=== PATIENT | male | born 1965 | race Caucasian/White ===

== ENCOUNTER 2017-05-22 17:59 | Emergency (ER) | payer SELFPAY ==
[2017-05-22 18:27] VITALS: BP 153/89; PULSE 103; RESP 20; TEMP 37.3; O2SAT 96; BMI 20.3
--- NOTE | 2017-05-22 19:19 | HMH.EDUTC ---
[facility] – [place] Disposition Clinical Impression: Pneumonia Qualifiers: Pneumonia type: due to unspecified organism Laterality: left Lung location: unspecified part of lung Qualified Code(s): J18.9 - Pneumonia, unspecified organism Disposition: Home, Self-Care Condition on Discharge: Good Instructions: DI for Pneumonia -- Adult Additional Instructions: * STOP SMOKING!!!! * start antibiotic tomorrow since we gave first dose in clinic. Be sure to complete entire prescription even if feeling better. * Monitor Temp. Follow up if fever restarts. * humidifier/vaporizer/hot steamy shower * Inhaler every 4-6 hours as needed like we discussed. Should help open airways and improve cough, wheezing, shortness of breath. * Mucinex during the day for your cough and cough suppressant only at night. Be sure to drink lots of water. Insurance may not cover a prescription of mucinex. Might be cheaper to get 400mg tablets and take 2 tablets morning, midday and evening all with lots of water. * Tessalon Perles will not cause drowsiness but use at bedtime to help stop cough so that you can get some rest * Start steroid tomorrow since you had injection in clinic. Helps with inflammation therefore, cough and wheezing. Follow directions on package. Rvwd side effects. Pt reports they have taken them before. We have provided you with a list of providers accepting patients. I would encourage you find a new primary care provider and make an appt CHANTEL as it can take weeks to get a new patient appointment. In the meantime, follow up in the clinic or ER for new, worsening or persistent symptoms. You WILL need a repeat xray in 4-6 weeks!!!!!!!!! Prescriptions: Benzonatate [Benzonatate 200mg Cap] 200 mg PO HS PRN #14 cap PRN Reason: Cough levoFLOXacin [Levaquin 500mg tab] 500 mg PO DAILY #9 tab predniSONE [Prednisone 20mg Tab] 20 mg PO BID #10 tab Referrals: Provider,Referral, MD [Primary Care Provider] - (in 2-3 days, immediately for new or worsening symptoms.) Time of Disposition: 21:01 Medical Decision Making Vital Signs: 05/22/17 18:27 Temperature 99.1 F Temperature Source Temporal Artery Scan Pulse Rate [Right Radial] 103 H Respiratory Rate 20 Blood Pressure [Right Arm] 153/89 Blood Pressure Mean [Right Arm] 110 Blood Pressure Source [Right Arm] Automatic Cuff Blood Pressure Position [Right Arm] Sitting 02 Sat by Pulse Oximetry 96 Oxygen Delivery Method Room Air - Lab Data Lab results reviewed: Yes: I reviewed the patient's lab results. Lab Results 05/22/17 20:56: Influenza Type A Ag Negative, Influenza Type B Ag Negative flu a neg flu b neg Orders (Tests/Meds): ED MEDICATIONS Generic Name Dose Route Start Last Admin Trade Name Freq PRN Reason Stop Dose Admin Levofloxacin 500 mg 05/22/17 21:00 Levaquin 500mg Tab PO 05/22/17 21:01 ONCE ONE Protocol Discontinued Medications Generic Name Dose Route Start Last Admin Trade Name Freq PRN Reason Stop Dose Admin Albuterol/Ipratropium 3 ml 05/22/17 19:24 05/22/17 19:35 Duoneb 3ml Neb IH 05/22/17 19:25 3 ml ONCE ONE Administration Methylprednisolone Sodium Succinate 125 mg 05/22/17 19:24 05/22/17 19:35 Solu-Medrol 125mg/2ml Vial IM 05/22/17 19:25 125 mg ONCE ONE Administration - Radiology Data #1 Image(s): Chest Image Reviewed: Yes I have reviewed radiologist's interpretation Preliminary Findings: Abnormal subtle infiltrate at left midlung and likely extending towards lingula - Joe Inquiry Pt receiving controlled substance: No - Reevaluation(s) Reevaluation #1: wheezing, cough, rhonchi improved but not resolved w/ steroid and duoneb. pt reports feeling better and breathing easier [facility] – [place] HPI - General Stated complaint: Fever, Aches, Chills Time Seen by Provider: 05/22/17 19:19 Mode of Arrival: Family Vehicle Source of Information: Patient Limitations: No Limitations Description of Symptoms (Recall
--- NOTE | 2017-05-22 19:24 | XR_ITS ---
XR chest 2V Ordering Physician: Andrew Payan Patient Age: 51 years: Male HISTORY: ITS.REASON: cough, wheezing, SOA >1wk despite zpack, smoker TECHNIQUE: PA and lateral chest COMPARISON :PA and lateral chest 07/31/2013 & 2007 FINDINGS Of the lungs appear hyperexpanded suggesting underlying COPD. . Identified in the diaphragm on lateral view is well. Right lung. Clear unremarkable. No active disease Left chest question very subtle infiltrate at the left midlung on the lateral view likely extending into the lingula with some scattered faint areas of nodularity. Clinical correlation required no patient had a previous lingular pneumonia 2007 CXR The heart is normal in size the [place] and mediastinal structures unremarkable. Mild apical pleural parenchymal scarring bilaterally appears stable. Chest wall and T-spine satisfactory and stable IMPRESSION: ========= Question/suspect a very subtle infiltrate at the left midlung and likely extending towards the lingula Scattered faint nodules also noted to this region. Would encourage a follow-up chest film and 4-6 weeks after current process has cleared.
--- NOTE | 2017-05-22 19:24 | ED_ITS ---
[facility] – [place] Disposition Clinical Impression: Pneumonia Qualifiers: Pneumonia type: due to unspecified organism Laterality: left Lung location: unspecified part of lung Qualified Code(s): J18.9 - Pneumonia, unspecified organism Disposition: Home, Self-Care Condition on Discharge: Good Instructions: DI for Pneumonia -- Adult Additional Instructions: * STOP SMOKING!!!! * start antibiotic tomorrow since we gave first dose in clinic. Be sure to complete entire prescription even if feeling better. * Monitor Temp. Follow up if fever restarts. * humidifier/vaporizer/hot steamy shower * Inhaler every 4-6 hours as needed like we discussed. Should help open airways and improve cough, wheezing, shortness of breath. * Mucinex during the day for your cough and cough suppressant only at night. Be sure to drink lots of water. Insurance may not cover a prescription of mucinex. Might be cheaper to get 400mg tablets and take 2 tablets morning, midday and evening all with lots of water. * Tessalon Perles will not cause drowsiness but use at bedtime to help stop cough so that you can get some rest * Start steroid tomorrow since you had injection in clinic. Helps with inflammation therefore, cough and wheezing. Follow directions on package. Rvwd side effects. Pt reports they have taken them before. We have provided you with a list of providers accepting patients. I would encourage you find a new primary care provider and make an appt CHANTEL as it can take weeks to get a new patient appointment. In the meantime, follow up in the clinic or ER for new, worsening or persistent symptoms. You WILL need a repeat xray in 4-6 weeks!!!!!!!!! Prescriptions: Benzonatate [Benzonatate 200mg Cap] 200 mg PO HS PRN #14 cap PRN Reason: Cough levoFLOXacin [Levaquin 500mg tab] 500 mg PO DAILY #9 tab predniSONE [Prednisone 20mg Tab] 20 mg PO BID #10 tab Referrals: Provider,Referral, MD [Primary Care Provider] - (in 2-3 days, immediately for new or worsening symptoms.) Time of Disposition: 21:01 Medical Decision Making Vital Signs: 05/22/17 18:27 Temperature 99.1 F Temperature Source Temporal Artery Scan Pulse Rate [Right Radial] 103 H Respiratory Rate 20 Blood Pressure [Right Arm] 153/89 Blood Pressure Mean [Right Arm] 110 Blood Pressure Source [Right Arm] Automatic Cuff Blood Pressure Position [Right Arm] Sitting 02 Sat by Pulse Oximetry 96 Oxygen Delivery Method Room Air - Lab Data Lab results reviewed: Yes: I reviewed the patient's lab results. Lab Results 05/22/17 20:56: Influenza Type A Ag Negative, Influenza Type B Ag Negative flu a neg flu b neg Orders (Tests/Meds): ED MEDICATIONS Generic Name Dose Route Start Last Admin Trade Name Freq PRN Reason Stop Dose Admin Levofloxacin 500 mg 05/22/17 21:00 Levaquin 500mg Tab PO 05/22/17 21:01 ONCE ONE Protocol Discontinued Medications Generic Name Dose Route Start Last Admin Trade Name Freq PRN Reason Stop Dose Admin Albuterol/Ipratropium 3 ml 05/22/17 19:24 05/22/17 19:35 Duoneb 3ml Neb IH 05/22/17 19:25 3 ml ONCE ONE Administration Methylprednisolone Sodium Succinate 125 mg 05/22/17 19:24 05/22/17 19:35 Solu-Medrol 125mg/2ml Vial IM 05/22/17 19:25 125 mg ONCE ONE Administration - Radiology Data #1 Image(s): Chest Image Reviewed:
[2017-05-22 20:56] LABS: UTC Influenza A Antigen Negative (Negative); UTC Influenza B Antigen Negative (Negative)
[2017-05-22 21:06] VITALS: BP 150/70; PULSE 76; RESP 20; TEMP 36.9; O2SAT 99
== END 2017-05-22 21:07 | disposition home or self-care (01) ==
PROVIDERS: Emergency Provider Nurse Practitioner Family
DX: J18.9 Pneumonia, unspecified organism (principal); F17.210 Nicotine dependence, cigarettes, uncomplicated
CPT/HCPCS: 71046; 87804; 96372; 99202

== ENCOUNTER → 2017-09-21 10:11 | Outpatient (REF) | payer SELFPAY ==
[2017-09-21 14:04] LABS: Basophils # 0.1 K/mm3 (0-0.2); Basophils % 0.8 % (0.1-2.0); Eosinophils # 0.3 K/mm3 (0.0-0.4); Eosinophils % 2.7 % (0.1-12.0); Hematocrit 52.1 % (42.0-52.0); Hemoglobin 16.3 g/dL (14.1-18.0); Lymphocytes # 2.7 K/mm3 (0.7-4.5); Lymphocytes % 29.7 K/mm3 (10-50); Mean Corpuscular HGB Conc 31.2 g/dL (31.8-35.4); Mean Corpuscular Volume 99.3 fl (80-94); Monocytes # 0.5 K/mm3 (0.1-1.0); Monocytes % 5.5 % (1.7-9.3); Neutrophils # 5.5 K/mm3 (1.8-7.8); Neutrophils % 61.2 % (37.0-80.0); Platelet Count 372 K/mm3 (142-424); Red Blood Count 5.25 M/mm3 (4.60-6.20); Red Cell Distribution Width 13.2 % (11.5-17.5)
[2017-09-21 14:05] LABS: Alanine Aminotransferase 25 U/L (12-78); Albumin/Globulin Ratio 1.2 (1.1-1.8); Alkaline Phosphatase 105 U/L (46-116); Anion Gap 16.2 mEq/L (5-15); Aspartate Amino Transferase 23 U/L (15-37); Bilirubin,Total 0.5 mg/dL (0.2-1.0); Blood Urea Nitrogen 8 mg/dL (7-18); Calcium 8.8 mg/dL (8.5-10.1); Carbon Dioxide 27 mmol/L (21.0-32.0); Chloride 104 mmol/L (98-107); Chol/HDL Ratio 2.8 (1-3.5); Cholesterol 183 mg/dL (140-200); Creatinine,Serum 0.76 mg/dL (0.70-1.30); Estimated Glomerular Filt Rate 108 ml/min (>60); GFR (African American) 130 ML/MIN (>60); Globulin 3.3 gm/dl (1.3-3.2); Glucose 145 mg/dL (74-106); HDL Cholesterol 66 mg/dL (27-67); LDL Cholesterol 94 mg/dL (0-130); Potassium 4.2 mmoL/L (3.5-5.1); Sodium 143 mmol/L (136-145); T4 (Thyroxine) 5.7 ug/dl (4.7-13.3); Thyroid Stimulating Hormone 0.64 uIU/ml (0.358-3.740); Total Protein,Serum 7.3 gm/dL (6.4-8.2); Triglycerides 117 mg/dL (30-200); VLDL Cholesterol 23 mg/dL (0-40)
[2017-09-22 15:40] LABS: PSA, Free 0.74 ng/mL; Prostate Specific Ag 4.8 ng/mL (0.0-4.0); Vitamin D 25 Hydroxy 27.5 ng/mL (30.0-100.0)
== END ==
LOC: LAB 10:11
PROVIDERS: Visit Provider Nurse Practitioner Family
DX: R22.1 Localized swelling, mass and lump, neck (principal); L02.91 Cutaneous abscess, unspecified; R53.83 Other fatigue
CPT/HCPCS: 80053; 80061; 82652; 84153; 84154; 84436; 84443; 85025

== ENCOUNTER → 2018-05-09 10:17 | Outpatient (CLI) | payer SELFPAY ==
[2018-05-09 11:07] LABS: Basophils # 0.1 K/mm3 (0-0.2); Basophils % 0.6 % (0.1-2.0); Eosinophils # 0.3 K/mm3 (0.0-0.4); Eosinophils % 2.1 % (0.1-12.0); Hematocrit 44.9 % (42.0-52.0); Hemoglobin 14.7 g/dL (14.1-18.0); Lymphocytes # 2.4 K/mm3 (0.7-4.5); Lymphocytes % 17.7 % (10-50); Mean Corpuscular HGB Conc 32.8 g/dL (31.8-35.4); Mean Corpuscular Hemoglobin 32.9 pg (27.0-31.2); Mean Corpuscular Volume 100.2 fl (80-94); Mean Platelet Volume 7.1 fl (7.4-10.4); Monocytes # 0.6 K/mm3 (0.1-1.0); Monocytes % 4.6 % (1.7-9.3); Neutrophils # 10.2 K/mm3 (1.8-7.8); Platelet Count 308 K/mm3 (142-424); Red Blood Count 4.48 M/mm3 (4.60-6.20); Red Cell Distribution Width 12.9 % (11.5-17.5); White Blood Count 13.7 K/mm3 (4.8-10.8)
[2018-05-09 11:33] LABS: Blood Urea Nitrogen 9 mg/dL (7-18); Calcium 8.8 mg/dL (8.5-10.1); Carbon Dioxide 27 mmol/L (21.0-32.0); Chloride 106 mmol/L (98-107); Estimated Glomerular Filt Rate 118 ml/min (>60); GFR (African American) 143 ML/MIN (>60); Glucose 107 mg/dL (74-106); Sodium 144 mmol/L (136-145)
== END ==
PROVIDERS: Visit Provider Surgery
DX: L72.3 Sebaceous cyst (principal)
CPT/HCPCS: 36415; 80048; 85025; 93005

== ENCOUNTER 2018-05-11 08:56 | Outpatient (CLI) | payer SELFPAY ==
--- NOTE | 2018-05-11 09:21 | PC.NURSE ---
wet-2-dry dressing. at bedside to learn how to do dressing at home. Pt's assisting with dressing change. Cleaned with normal saline and packed with approximately 1/2 of a 4x4 gauze pad. Covered with 4x4 gauze and dressed with a tegaderm. A few dressing supplied provided to the patient.
== END 2018-05-11 09:15 | disposition home or self-care (01) ==
LOC: INF 08:57
PROVIDERS: Visit Provider Surgery
DX: Z48.01 Encounter for change or removal of surgical wound dressing (principal); L02.11 Cutaneous abscess of neck; L72.3 Sebaceous cyst
CPT/HCPCS: G0463

== ENCOUNTER 2022-07-11 13:50 | Emergency (ER) | payer SELFPAY ==
[2022-07-11] VITALS (7 sets, daily range): BP systolic 141–170; BP diastolic 86–114; PULSE 63–89; RESP 16; TEMP 36.9; O2SAT 95–99; BMI 19.0
--- NOTE | 2022-07-11 13:54 | ECG_ITS ---
APPROVED REPORT Exam: Resting ECG HR:65 bpm ECG Measurements Heart Rate 65 AXES DC 144 P 68 QRSd 94 QRS 71 QT 382 T 73 QTc 394 Conclusion SINUS RHYTHM WITH OCCASIONAL SUPRAVENTRICULAR PREMATURE COMPLEXES BORDERLINE ECG UNCONFIRMED REPORT Electronically signed by : Adalberto Vega MD 07/15/2022 14:34:41
--- NOTE | 2022-07-11 13:58 | XR_ITS ---
FINAL REPORT CLINICAL HISTORY: chest pain COMPARISON: 05/22/2017 FINDINGS: Two views of the chest were obtained. The heart size and pulmonary vascularity are within normal limits. The mediastinum is normal. There is mild biapical scarring.. There is no pneumothorax. The bony thorax is intact. IMPRESSION: No acute cardiopulmonary process. Mild biapical scarring. Reviewed, Interpreted and Dictated by Carlitos May III, MD Transcribed by Jyoti Moses Authenticated and [facility]
[2022-07-11 14:26] LABS: Coronavirus 19, PCR Not Detected (NotDetected); Influenza A, PCR Not Detected (NotDetected); Influenza B, PCR Not Detected (NotDetected)
[2022-07-11 14:27] LABS: Basophils # 0.1 K/mm3 (0-0.2); Basophils % 0.7 % (0.1-2.0); Eosinophils # 0.5 K/mm3 (0.0-0.4); Eosinophils % 4.5 % (0.1-12.0); Hematocrit 50.2 % (42.0-52.0); Hemoglobin 16.2 g/dL (14.1-18.0); Lymphocytes # 2.8 K/mm3 (0.7-4.5); Lymphocytes % 24.5 % (10-50); Mean Corpuscular HGB Conc 32.3 g/dL (31.8-35.4); Mean Corpuscular Hemoglobin 32.8 pg (27.0-31.2); Mean Corpuscular Volume 101.7 fl (80-94); Monocytes # 0.6 K/mm3 (0.1-1.0); Monocytes % 5.6 % (1.7-9.3); Neutrophils # 7.4 K/mm3 (1.8-7.8); Neutrophils % 64.8 % (37.0-80.0); Platelet Count 315 K/mm3 (142-424); Red Blood Count 4.94 M/mm3 (4.60-6.20); Red Cell Distribution Width 12.5 % (11.5-17.5); White Blood Count 11.5 K/mm3 (4.8-10.8)
[2022-07-11 14:32] LABS: Anion Gap 9.6 mEq/L (5-15); Blood Urea Nitrogen 8 mg/dl (9-20); Calcium 8.7 mg/dl (8.4-10.2); Carbon Dioxide 26 mmol/L (22.0-30.0); Chloride 103 mmol/L (98-107); Creatinine Clearance Estimated 122 mL/min (50-200); Estimated Glomerular Filt Rate 139 ml/min (>60); GFR (African American) 168 ML/MIN (>60); Glucose 133 mg/dl (74-100); Potassium 3.6 mmoL/L (3.5-5.1); Sodium 135 mmol/L (136-145)
[2022-07-11 14:35] LABS: INR 0.93 (0.9-1.1); Prothrombin Time 10.1 seconds (10.1-12.5)
[2022-07-11 14:46] LABS: Troponin I < 0.01 ng/ml (0.00-0.034)
--- NOTE | 2022-07-11 14:47 | HMH.EDCP ---
Discharge Plan Disposition Patient Disposition: Home, Self-Care Condition: Good Prescriptions Prescriptions: New lisinopril 5 mg tablet 5 mg PO DAILY Qty: 30 0RF Referrals Follow up/Referrals: Osvaldo Higginbotham MD [Staff Physician] - 3 days Provider,MD Alicia [Primary Care Provider] - See instructions Activity Restrictions/Add. Instructions Additional Instructions/Restrictions: You came in with chest pain. Your chest pain is very atypical musculoskeletal in nature. I am giving you ibuprofen and Skelaxin a muscle relaxer. Follow-up with cardiology as an outpatient. Her EKG and 2 sets of heart enzymes are negative. Clinical Impressions Clinical Impression: Chest pain, HTN (hypertension) Instructions Patient Instructions: DI for Atypical Chest Pain Discharge ED Provider: Stacey Garcia Chest Pain HPI General Chief Complaint: Chest Pain Stated Complaint: CP Time Seen by Provider: 07/11/22 14:05 Mode of Arrival: Ambulatory Source of Information: Patient and Spouse Limitations: No Limitations Description of Symptoms (Recalled from ER Triage Doc. by RN): 56 M presents from his job with 2 weeks of left sided chest pain with numbness. Patient's spouse at bedside relays that patient doesn't take any medicine even though they have told him he needs to for his blood pressure. Patient denies taking medications daily. Aside from the pain described above, he reports low back pain, too. History of Present Illness HPI narrative: Patient is a 56-year-old male who is here secondary left-sided chest pain. Patient is going left-sided chest pain from the armpit to left-sided chest and down his left arm. Sharp type pain. Patient states that he has been coughing for the past 2 weeks. His had COVID but he tested negative. Patient stated the pain is worse with certain movements. No fevers and chills. No sore throat no headache no loss of taste or smell. He has had no trauma or fall. complaint: chest pain Onset (ago): day(s) Duration: intermittent Activity at onset: during rest Pain location: left chest Severity: mild Severity scale (1-10): 4 Quality: sharp and ripping Pain radiation: LUE Relieving factors: nothing Exacerbating factors: nothing Associated symptoms: dyspnea and cough Risk Factors for CAD: Hypertension Treatments prior to or on arrival for Cardiac Chest Pain: none JULIANN Score for Non-Stemi Age of Patient: 50-59 years old Heart Rate: 50-69 bpm Systolic Blood Pressure: 140-159 mmHg CHF Killip Class: I-No CHF Other Risk Factors: None Related Data Previous Rx's Medication Instructions Recorded lisinopril 5 mg tablet 5 mg PO DAILY #30 tabs 07/11/22 Allergies Allergy/AdvReac Type Severity Reaction Status Date / Time PCN (PENICILLIN) Allergy Unknown Uncoded 05/23/18 13:05 [facility] Disclaimer: The information contained in this section may have been updated after the patient was seen, as this information can be updated by other users. Social History Smoking Status: Current every day smoker tobacco type: cigarettes packs per day: 1 alcohol intake: never substance use type: denies use current occupational status: employed Travel in the last 8 weeks: None household members: significant other housing: house caffeine: No ROS Obtained: Yes All systems reviewed & no additional complaints except as documented Cardiovascular Cardiovascular: Reports chest pain Physical Exam General General appearance: alert and in distress Head Head exam: atraumatic, normocephalic and normal inspection Eye Eye exam: Present normal appearance, PERRL and EOMI; Absent scleral icterus or conjunctival redness ENT ENT exam: Present normal exam, normal oropharynx and mucous membranes moist Neck Neck exam: Present normal inspection, full ROM and trachea midline Chest Chest inspection: Present normal inspection, symmetric chest wall r
[2022-07-11 15:06] LABS: Alanine Aminotransferase 23 U/L (12-78); Albumin Level 4.4 g/dl (3.5-5.0); Alkaline Phosphatase 114 U/L (38-126); Aspartate Amino Transferase 29 U/L (17-59); Bilirubin,Direct 0.1 mg/dl (0.0-0.4); Bilirubin,Indirect 0.3 mg/dL (0.0-0.9); Bilirubin,Total 0.4 mg/dl (0.2-1.3); Bilirubin,Unconjugated 0.2 mg/dL (0.0-1.1); Chol/HDL Ratio 3.8 (1-3.5); Cholesterol 192 mg/dl (140-200); HDL Cholesterol 50 mg/dl (40-60); Triglycerides 180 mg/dl (30-150); VLDL Cholesterol 36 mg/dL (0-40)
[2022-07-11 15:11] LABS: D-Dimer 0.42 ug/mL (0.0-0.5)
[2022-07-11 15:17] LABS: Direct LDL Cholesterol 106.06 mg/dL (100-129)
[2022-07-11 15:40] LABS: Thyroid Stimulating Hormone 1.46 uIU/mL (0.465-4.68)
--- NOTE | 2022-07-11 16:05 | PC.NURSE ---
checked on pt at this time, pt states no needs at this time, visitor at BS.
[2022-07-11 17:08] LABS: Troponin I < 0.01 ng/ml (0.00-0.034)
--- NOTE | 2022-07-11 17:13 | PC.NURSE ---
checked on pt at this time, pt sitting up on side of bed, visitor at bs. Notified him blood work just resulted, ER MD is in a room but will notify her and soon as she is available.
== END 2022-07-11 17:37 | disposition home or self-care (01) ==
PROVIDERS: Emergency Provider Emergency Medicine
DX: R07.89 Other chest pain (principal); I10 Essential (primary) hypertension; M79.602 Pain in left arm; F17.210 Nicotine dependence, cigarettes, uncomplicated
CPT/HCPCS: 71046; 80048; 80061; 80076; 84436; 84443; 84484; 85025; 85378; 85610; 85730; 93005; 96372; 96374; 99285; C9803; U0003; U0005

== ENCOUNTER 2024-03-25 09:56 | Emergency (ER) | payer SELFPAY ==
[2024-03-25 10:45] VITALS: BP 121/74; PULSE 104; RESP 21; TEMP 37.8; O2SAT 96; BMI 17.8
--- NOTE | 2024-03-25 11:05 | EXP.UTC ---
Discharge Plan Disposition Patient Disposition: Home, Self-Care Condition: Good Prescriptions Prescriptions: New benzonatate 100 mg capsule 100 mg PO TID PRN (Reason: cough) Qty: 30 0RF azithromycin [Zithromax Z-Marlo] 250 mg tablet See Rx Instructions .ROUTE .COMPLEX 5 Days Qty: 6 0RF Rx Instructions: For 250 mg dose pack: take 500 mg today (day 1), then 250 mg for 4 days (days 2-5) methylprednisolone [Medrol (Marlo)] 4 mg tablets,dose pack See Rx Instructions .Route .COMPLEX 6 Days Qty: 21 0RF Rx Instructions: taper pack; guaifenesin [Mucinex] 600 mg tablet extended release 12hr 600 mg PO BID PRN (Reason: cough) Qty: 20 0RF No Action lisinopril 5 mg tablet 5 mg PO DAILY Qty: 30 0RF Referrals Follow up/Referrals: Provider,Referral, MD [Primary Care Provider] - See instructions Activity Restrictions/Add. Instructions Additional Instructions/Restrictions: *Monitor Temp, Over the counter Motrin or Tylenol as directed/as needed Tylenol every 4 hours and Motrin every 6 hours (as long as your family doctor has told you that you can take it) for fever or pain. and straight to ER if unable to lower temp less than 101.0 after medication given *Warm salt water gargles may help to soothe the throat *Throat Lozenges? *Warm fluids like tea with honey may help to soothe the throat? *Sleep elevated *Humidifier/Vaporizer *Take medication as prescribed Follow up IMMEDIATELY for new or worsening symptoms or no Noticeable improvement over the next 48-72 hours. 911 for difficulty breathing or swallowing Clinical Impressions Clinical Impression: Bronchitis Instructions Patient Instructions: DI for Sinusitis, Acute Bronchitis Print Language Print Language: Swedish Discharge ED Provider: Krystyna Amador [facility] [place] HPI General Stated complaint: fever, chills, body aches Mode of Arrival: Ambulatory Source of Information: Patient Limitations: No Limitations Time Seen by Provider: 03/25/24 11:05 Description of Symptoms (Recalled from Triage Doc. by RN): PATIENT C/O FEVER AND BODY ACHES HEENT Symptoms (Recalled from RN notes): No Resp Symptoms (Recalled from RN notes): No Skin Symptoms (Recalled from RN notes): No MS Symptoms (Recalled from RN notes): No Functional Status (Recalled from RN notes): WNL History of Present Illness Provider Complaint: Patient states that he started feeling bad on Monday with fever, chills, and body aches sinus congestion and chest congestion States at times he will cough up some mucous States that he is an everyday smoker and gets bronchitis at times States that he wanted to come in and get tested for the flu worried he may have it Related Data Previous Rx's ?Medication ?Instructions ?Recorded lisinopril 5 mg tablet 5 mg PO DAILY #30 tabs 07/11/22 azithromycin 250 mg tablet See Rx Instructions PO .COMPLEX 5 03/25/24 (Zithromax Z-Marlo) days #6 tabs benzonatate 100 mg capsule 100 mg PO TID PRN cough #30 caps 03/25/24 guaifenesin 600 mg tablet, 600 mg PO BID PRN cough #20 tabs 03/25/24 extended release 12 hr (Mucinex) methylprednisolone 4 mg tablets in See Rx Instructions .Route 03/25/24 a dose pack (Medrol (Marlo)) .COMPLEX 6 days #21 tabs Allergies Allergy/AdvReac Type Severity Reaction Status Date / Time PCN (PENICILLIN) Allergy Unknown Uncoded 05/23/18 13:05 Worker's Comp Is this a Worker's Comp case?: No [facility] Disclaimer: The information contained in this section may have been updated after the patient was seen, as this information can be updated by other users. Social History Smoking Status: Current every day smoker tobacco type: cigarettes packs per day: 1 alcohol intake: never substance use type: denies use current occupational status: employed Travel in the last 8 weeks: None household members: significant other housing: house caffeine: No Have you lived/traveled outside [place] in past 30 days?: No Contact w/someone who lives/traveled outside [place] past 30 days?: No Exposure to someone with infectious disease in past 14 days?: No Do you have a fever (greater than 100.4 F or 38 C)?: No Have you tested positive for COVID-19: No Exposed to someone with COVID-19 in past 14 days?: No Do you have a sore throat?: No Do you have a cough?: Yes Do you have any weakness?: No Do you have any diarrhea?: No Are you experiencing any unusual bleeding?: No Do you have any muscle aches/pain?: No Do you have any abdominal pain?: No Are you experiencing loss of taste or smell?: No ROS Obtained: Yes All systems reviewed & no additional complaints except as documented and Yes Systems reviewed as appropriate & no additional complaints except as documented Constitutional Constitutional: Reports system reviewed and no additional complaints, except as documented, Reports as per HPI, Reports body ache, Reports chills and Reports fatigue ENT Ears, Nose, Mouth, and Throat: Reports system reviewed and no additional complaints, except as documented, Reports as per HPI, Reports nasal congestion and Reports sinus pressure Cardiovascular Cardiovascular: Reports system reviewed and no additional complaints, except as documented and Reports as per HPI Respiratory Respiratory: Reports system reviewed and no additional complaints, except as documented, Reports as per HPI, Denies shortness of breath, Reports chest congestion and Reports cough Gastrointestinal Gastrointestingal: Reports system reviewed and no additional complaints, except as documented and as per HPI Endocrine Endocrine: Reports fatigue Physical Exam General General appearance: alert and in no apparent distress ENT ENT exam: Present mucous membranes moist Expanded ENT Exam Nose exam: Present sinus tenderness Throat exam: Present other (PND noted) Respiratory Respiratory exam: Present normal lung sounds bilaterally; Absent respiratory distress or wheezes Cardiovascular Cardiovascular exam: Present regular rate, normal rhythm and normal heart sounds Abdominal Exam Abdominal exam: Present soft and normal bowel sounds; Absent distention or tenderness Neurological Exam Neurological exam: Present alert, oriented X3 and normal gait Medical Decision Making Medical Records Screening: Per USPSTF and CDC recommendations, given the prevalence of disease in our region, it is our hospital?s policy to screen for HIV and viral Hepatitis for all patients aged 18 and over and those with ongoing risk factors. Joe Inquiry Pt receiving controlled substance: No Joe was queried for this patient: No Vital Signs: 03/25/24 10:45 Temperature 100.0 F H Temperature Source Oral Pulse Rate [Left Brachial] 104 H Respiratory Rate 21 Blood Pressure [Left Arm] 121/74 Blood Pressure Mean [Left Arm] 89 Blood Pressure Source [Left Arm] Automatic Cuff Blood Pressure Position [Left Arm] Sitting 02 Sat by Pulse Oximetry 96 Oxygen Delivery Method Room Air Lab Data Lab results reviewed: Yes I reviewed the patient's lab results. Medical Decision Narrative: recommended COVID test and patient declined
[2024-03-25 11:06] LABS: UTC Influenza A Antigen Negative (Negative); UTC Influenza B Antigen Negative (Negative)
[2024-03-25 11:27] VITALS: BP 121/74; PULSE 104; RESP 21; TEMP 37.8; O2SAT 96
== END 2024-03-25 11:37 | disposition home or self-care (01) ==
PROVIDERS: Emergency Provider Nurse Practitioner
DX: J40 Bronchitis, not specified as acute or chronic (principal); R50.9 Fever, unspecified; M79.10 Myalgia, unspecified site; R09.81 Nasal congestion; R05.9 Cough, unspecified; R53.83 Other fatigue
CPT/HCPCS: 87804; 99212; G0381

== ENCOUNTER 2024-09-15 14:42 | Outpatient (CLI) | payer SELFPAY ==
[2024-09-15 20:06] LABS: Coronavirus 19, PCR Not Detected (NotDetected); Human Rhinovirus Not Detected (NotDetected); Influenza A, PCR Not Detected (NotDetected); Influenza B, PCR Not Detected (NotDetected); Respiratory Syncytial Virus Not Detected (NotDetected)
== END 2024-09-15 23:59 | disposition home or self-care (01) ==
LOC: LAB.DROPOF 09-16 12:40
PROVIDERS: PCP Nurse Practitioner; Visit Provider Nurse Practitioner
DX: R05.9 Cough, unspecified (principal)
CPT/HCPCS: 87631